=== PATIENT | male | born 1985 | race American Indian/Alaskan Native ===

== ENCOUNTER 2021-06-09 10:55 | Emergency (ER) | payer SELFPAY ==
[2021-06-09 13:49] VITALS: BP 121/73
--- NOTE | 2021-06-09 14:28 | Emergency Department Report ---
ED ENT HPI - General Chief complaint: Skin/Abscess/Foreign Body Stated complaint: INFLAMATION LFT SIDE OF FACE Time Seen by Provider: 06/09/21 13:47 Source: patient, family Mode of arrival: Ambulatory Limitations: No Limitations - History of Present Illness Initial comments: Patient is a 35-year-old male presents emergency room planes of left upper dent al pain that began a week ago. He states he was using some [id number] medications and it appeared to be improving but then 3 days ago he noticed swelling to the region. He states that he also felt swelling to his left upper cheek. He denies any fever, vomiting, chills, difficulty swallowing, difficulty breathing. Patient denies any past medical history. No allergies to medications. He states he has not seen a dentist in approximately 7 to 8 years. - Related Data Previous Rx's Medication Instructions Recorded Last Taken Type Chlorhexidine Mouthwash [Peridex] 15 ml MM BID #1 bottle 06/09/21 Unknown Rx Naproxen 375 mg PO BID PRN #14 tablet 06/09/21 Unknown Rx Penicillin Vk [Veetids TAB] 500 mg PO QID 7 Days #56 tablet 06/09/21 Unknown Rx Allergies Allergy/AdvReac Type Severity Reaction Status Date / Time No Known Allergies Allergy Unverified 06/09/21 13:31 ED Dental HPI - General Chief complaint: Skin/Abscess/Foreign Body Stated complaint: INFLAMATION LFT SIDE OF FACE Time Seen by Provider: 06/09/21 13:47 Source: patient, family Mode of arrival: Ambulatory Limitations: No Limitations - Related Data Previous Rx's Medication Instructions Recorded Last Taken Type Chlorhexidine Mouthwash [Peridex] 15 ml MM BID #1 bottle 06/09/21 Unknown Rx Naproxen 375 mg PO BID PRN #14 tablet 06/09/21 Unknown Rx Penicillin Vk [Veetids TAB] 500 mg PO QID 7 Days #56 tablet 06/09/21 Unknown Rx Allergies Allergy/AdvReac Type Severity Reaction Status Date / Time No Known Allergies Allergy Unverified 06/09/21 13:31 ED Review of Systems ROS: Stated complaint: INFLAMATION LFT SIDE OF FACE Other details as noted in HPI Comment: All other systems reviewed and negative ED Past Medical Hx - Social History Smoking Status: Current Every Day Smoker Substance Use Type: None - Medications Home Medications: Home Medications Medication Instructions Recorded Confirmed Last Taken Type Chlorhexidine Mouthwash [Peridex] 15 ml MM BID #1 bottle 06/09/21 Unknown Rx Naproxen 375 mg PO BID PRN #14 tablet 06/09/21 Unknown Rx Penicillin Vk [Veetids TAB] 500 mg PO QID 7 Days #56 tablet 06/09/21 Unknown Rx ED Physical Exam - General Limitations: No Limitations General appearance: alert, in no apparent distress - Head Head exam: Present: atraumatic, normocephalic - Eye Eye exam: Present: normal appearance - ENT ENT exam: Present: mucous membranes moist, other (there is a cracked pre molar present to the left upper gumline with associated 1 cm area of induration, no fluctuance, no drainage, mild left upper facial edema, uvula is midline, no uvular edema or deviation, no trismus, no tongue elevation, no muffled voice, no submandibular edema) - Neurological Exam Neurological exam: Present: alert, oriented X3 - Psychiatric Psychiatric exam: Present: normal affect, normal mood - Skin Skin exam: Present: warm, dry, intact ED Course Vital Signs 06/09/21 06/09/21 13:29 13:43 Temperature 97.4 F L 97.6 F Pulse Rate 56 L 66 Respiratory 18 14 Rate Blood Pressure 123/79 121/73 [Left] O2 Sat by Pulse 100 99 Oximetry ED Medical Decision Making - Lab Data Vital Signs 06/09/21 06/09/21 13:29 13:43 Temperature 97.4 F L 97.6 F Pulse Rate 56 L 66 Respiratory 18 14 Rate Blood Pressure 123/79 121/73 [Left] O2 Sat by Pulse 100 99 Oximetry - Medical Decision Making Patient is a 35-year-old male presents emergency room planes of left upper dental pain that began a week ago. He states he was using some [id number]-[id number] medications and it appeared to be improving but then 3 days ago he noticed swelling to the region. He states that he also felt swelling to his left upper cheek. He denies any fever, vomiting, chills, difficulty swallowing, difficulty breathing. Patient denies any past medical history. No allergies to medications. He states he has not seen a dentist in approximately 7 to 8 years. Vitals are stable. On exam:there is a cracked pre molar present to the left upper gumline with associated 1 cm area of induration, no fluctuance, no drainage, mild left upper facial edema, uvula is midline, no uvular edema or deviation, no trismus, no tongue elevation, no muffled voice, no submandibular edema. Examination presents distant with a small dental abscess. No signs of facial cellulitis, facial abscess or Ludwigs at this time. Patient given prescription for medic ation. Discussed the importance of outpatient dental follow-up. Advised patient Please take medication as prescribed. Follow-up with a dentist. Return to emergency room for any new or worsening symptoms. Critical care attestation.: If time is entered above; I have spent that time in minutes in the direct care of this critically ill patient, excluding procedure time. ED Disposition Clinical Impression: Dental caries, Dental abscess Disposition: 01 HOME / SELF CARE / HOMELESS Is pt being admited?: No Does the pt Need Aspirin: No Condition: Stable Instructions: Dental Abscess Additional Instructions: Please take medication as prescribed. Follow-up with a dentist. Return to emergency room for any new or worsening symptoms. Prescriptions: Naproxen 375 mg PO BID PRN #14 tablet PRN Reason: pain Chlorhexidine Mouthwash [Peridex] 15 ml MM BID #1 bottle Penicillin Vk [Veetids TAB] 500 mg PO QID 7 Days #56 tablet Referrals: [facility] [Outside] - 3-5 Days [facility] [Outside] - 3-5 Days Time of Disposition: 14:26 Print Language: SINHALA
== END 2021-06-09 15:14 | disposition home or self-care (01) ==
LOC: ED 10:55
DX: K04.7 Periapical abscess without sinus (principal); K02.9 Dental caries, unspecified; F17.200 Nicotine dependence, unspecified, uncomplicated; Z79.899 Other long term (current) drug therapy
CPT/HCPCS: 99282